=== PATIENT | female | born 1955 | race Caucasian/White ===

== ENCOUNTER 2021-11-08 18:01 | Observation (INO) ==
[2021-11-08] MEDS ORDERED: NS 0.9% 1000 ml BAG 1,000 ML IV ONE (18:19)
[2021-11-08 18:31] LABS: ABS Lymphocytes 1.1 10^3/ul (1.0-4.8); ABS Monocytes 0.3 10^3/ul (0-0.8); ABS Neutrophils 7.1 10^3/ul (1.5-7.7); Eosinophil % 0.2 %; Hematocrit 41 % (35-47); Lymphocyte % 13.3 %; Mean Corpuscular HGB Conc 34 g/dL (31-36); Mean Corpuscular Hemoglobin 31 pg (27-31); Mean Corpuscular Volume 90 fL (80-97); Platelet Count 270 10^3/uL (150-450); Red Blood Count 4.55 10^6 /uL (3.70-4.87); Red Cell Distribution Width 12 % (10-15); White Blood Count 8.6 10^3/uL (3.5-10.8)
[2021-11-08 18:49] LABS: Activated Partial Thrombo Time 27.6 seconds (26.0-38.0); INR 0.99 (0.86-1.15)
[2021-11-08 18:50] LABS: High Sens Troponin Baseline 5 pg/mL (<15)
[2021-11-08 18:56] LABS: ALT 29 U/L (7-52); AST 19 U/L (13-39); Albumin 4.6 g/dL (3.2-5.2); Albumin/Globulin Ratio 1.3 (1-3); Alkaline Phosphatase 82 U/L (35-149); Anion Gap 10 mmol/L (2-11); Blood Urea Nitrogen 12 mg/dL (6-24); CO2 Carbon Dioxide 26 mmol/L (22-32); Calcium 10.3 mg/dL (8.6-10.3); Chloride 95 mmol/L (101-111); Cholesterol 374 mg/dL; Globulin 3.6 g/dL (2-4); Glucose 353 mg/dL (70-100); HDL Cholesterol 48.9 mg/dL; Potassium 4.3 mmol/L (3.5-5.0); Sodium 131 mmol/L (135-145); Total Protein 8.2 g/dL (6.4-8.9); Triglycerides 425 mg/dL; eGFR CKD-EPI 96.6 (>60)
[2021-11-08 19:26] LABS: Alcohol, S < 13 mg/dL (<13); LDL Cholesterol Direct 211 mg/dL
[2021-11-08] MEDS ORDERED: methylPREDNISolone SOD SUCC 125 mg 2 ML VIAL IV ONE (19:26)
[2021-11-08] MEDS ORDERED: Metoclopramide 5 MG/ML VIAL (10 mg) IV SLOW PU ONE (19:26)
[2021-11-08] MEDS ORDERED: Acetaminophen IV 1 GM/100ML 100 ML IV ONE (19:30)
[2021-11-08 19:47] LABS: High Sensitivity Troponin 1 Hr 5 pg/mL (<15)
[2021-11-08] MEDS ORDERED: Enoxaparin 40 MG/0.4 ML SYR SUBCUT SCH (21:00)
[2021-11-08 21:35] LABS: C Reactive Protein 3.31 mg/L (<8.01)
[2021-11-08 21:40] LABS: Erythrocyte Sed Rate 54 mm/Hr (0-29)
[2021-11-08 22:18] LABS: Urine Benzodiazepine Screen None Detected (None Detect); Urine Cannabinoids Screen None Detected (None Detect); Urine Opiates Screen None Detected (None Detect)
[2021-11-09] MEDS ORDERED: Dextrose 50% Syringe 50 ml 25 GM/50 ML SYRINGE IV PUSH PRN ×2 (06:24→07:08)
[2021-11-09 06:37] LABS: ABS Lymphocytes 0.7 10^3/ul (1.0-4.8); ABS Monocytes 0.1 10^3/ul (0-0.8); ABS Neutrophils 5.8 10^3/ul (1.5-7.7); Hematocrit 37 % (35-47); Hemoglobin 12.9 g/dL (12.0-16.0); Lymphocyte % 10.2 %; Mean Corpuscular HGB Conc 35 g/dL (31-36); Mean Corpuscular Hemoglobin 32 pg (27-31); Mean Corpuscular Volume 92 fL (80-97); Mean Platelet Volume 8.1 fL (7.4-10.4); Platelet Count 232 10^3/uL (150-450); Red Blood Count 4.03 10^6 /uL (3.70-4.87); Red Cell Distribution Width 12 % (10-15); White Blood Count 6.5 10^3/uL (3.5-10.8)
[2021-11-09 07:03] LABS: Calcium 9.2 mg/dL (8.6-10.3); Potassium 4.5 mmol/L (3.5-5.0); eGFR CKD-EPI 97.3 (>60)
[2021-11-09 07:17] LABS: Glucose Confirmatory 408 mg/dL (70-100)
[2021-11-09] MEDS ORDERED: Insulin GLARGINE 100 un/ml 10 ml VIAL SUBCUT SCH (09:00)
[2021-11-09 12:20] LABS: Urine Appearance Clear; Urine Bilirubin Negative (Negative); Urine Blood Negative (Negative); Urine Color Yellow; Urine Glucose 3+(>=500 mg/dL) (Negative); Urine Ketones 2+ (Negative); Urine Nitrite Negative (Negative); Urine Protein Negative (Negative); Urine Specific Gravity 1.033 (1.002-1.030); Urine Urobilinogen Negative (Negative)
[2021-11-09 15:20] VITALS: BP 126/59
== END 2021-11-09 17:03 | disposition home or self-care (01) ==
LOC: EDHOLD 18:01 → ED 18:01 → MEDTELE 22:54
PROVIDERS: ADMIT Internal Medicine; ATTEND Internal Medicine